=== PATIENT | female | born 1975 | race Two or more races ===

== ENCOUNTER 2019-01-22 22:57 | Emergency (ER) | payer SELFPAY ==
[~2019-01-22 22:57] MED LIST: TOPIRAMATE25 MG ORAL
--- NOTE | 2019-01-22 23:09 | NUR ---
ED Nurse Note: pt is not on the waiting room when called.
--- NOTE | 2019-01-22 23:42 | NUR ---
ED Nurse Note: pt not in waiting room when call on the second time
--- NOTE | 2019-01-23 00:13 | NUR ---
ED Nurse Note: pt is not on the waiting room when called for the third time
--- NOTE | 2019-01-23 00:31 | Emergency Room Report ---
History of Present Illness General Chief Complaint: To Be Triaged Present Illness HPI This a 43-year-old female who sent in for medical evaluation. Afterwards she got up and left. She did not get triage. I did not see this patient. Allergies: Coded Allergies: MORPHINE (Unverified Allergy, Unknown, 09/02/14) Nursing Documentation-[facility] Hx Cancer: Yes - ovarian Medical Decision Making Disposition: LEFT W/OUT BEING SEEN Ernie Gordon MD Jan 23, 2019 00:31
== END 2019-01-23 00:30 | disposition left against medical advice (07) ==
LOC: EMR 23:00
DX: Z53.21 Procedure and treatment not carried out due to patient leaving prior to being seen by health care provider (principal)